=== PATIENT | male | born 1950 | race Caucasian/White ===

== ENCOUNTER 2022-01-29 21:15 | Emergency (ER) | payer BC ==
[2022-01-29] MEDS ORDERED: Sodium Chloride 0.9% 10 ML Syringe FLUSH PRN (21:32)
[2022-01-29 22:34] LABS: CORONAVIRUS COVID-19 NAA NEGATIVE (NEGATIVE)
[2022-01-29] MEDS ORDERED: Iopamidol 755 Mg/ML 100 ML Bottle IVPUSH ONE (23:31)
[2022-01-29] MEDS ORDERED: Sodium Chloride 0.9% 100 ML IV SCH (23:45)
== END 2022-01-30 00:15 | disposition home or self-care (01) ==
LOC: JD.ED 21:15 → MERGE 21:15 → JD.ED 01-30 00:15
DX: J10.1 Influenza due to other identified influenza virus with other respiratory manifestations (principal); F17.210 Nicotine dependence, cigarettes, uncomplicated; Z90.49 Acquired absence of other specified parts of digestive tract; Z20.822 Contact with and (suspected) exposure to COVID-19
CPT/HCPCS: 0240U; 36415; 71045; 71275; 80053; 83735; 83880; 84484; 85025; 85379; 86140; 93005; 99285; J3490; Q9967